=== PATIENT | male | born 1945 | race Caucasian/White ===

== ENCOUNTER 2017-05-11 13:05 | Inpatient (IN) | payer OTHER ==
[~2017-05-11] VITALS: Ht 180.3 cm; Wt 94.1 kg
[2017-05-11 14:07] LABS: BASOPHIL (%) 0.5 % (0-1); EOSINOPHIL (%) 4.8 % (0-5); EOSINOPHIL COUNT 0.2 K/uL (0-0.3); HEMATOCRIT 36.3 % (38.0-50.0); HEMOGLOBIN 12.1 G/DL (12.5-16.6); IMMATURE GRANULOCYTE (%) 0.2 % (0.0-0.7); LYMPHOCYTE (%) 18.5 % (15-42); LYMPHOCYTE COUNT 0.8 K/uL (1.0-2.8); MCH 27.3 PG (29.0-34.0); MCHC 33.3 G/DL (30.0-36.0); MCV 81.8 FL (86-99); MONOCYTE (%) 12.6 % (3-12); MONOCYTE COUNT 0.6 K/uL (0-0.8); NEUTROPHIL (%) 63.4 % (45-76); NEUTROPHIL COUNT 2.8 K/uL (1.8-6.4); PLATELET COUNT 189 K/uL (156-360); RBC DIS.WIDTH-CV 13.9 % (11.8-14.6); RBC DIS.WIDTH-SD 41.2 % (39-53); RED BLOOD COUNT 4.44 M/uL (4.00-5.50); WHITE BLOOD COUNT 4.4 K/uL (4.1-10.2)
[2017-05-11 14:20] LABS: INTER. NORMALIZED RATIO 1.6
[2017-05-11 14:21] LABS: CHLORIDE 106 mEq/L (99-109); SODIUM 138 mEq/L (136-147)
[2017-05-11 14:23] LABS: GLUCOSE 276 mg/dL (70-99); PTT 31.6 SEC (25-37)
[2017-05-11 14:27] LABS: CREATININE 1.6 mg/dL (0.6-1.3); GFR ESTIMATE (CALCULATED) 46 mL/min/ (58.99-99999)
[2017-05-11 14:28] LABS: UREA NITROGEN (BUN) 28 mg/dL (9-23)
[2017-05-11 14:39] LABS: ERTH.SED.RATE 13 MM/HR (0-20)
[2017-05-11 15:03] LABS: C-REACTIVE PROTEIN 1.1 MG/L (0-10)
[2017-05-11] MEDS ORDERED: XARELTO20 MG PO (16:54)
[2017-05-11] MEDS ORDERED: ADVIL200 MG PO (16:55)
[2017-05-11] MEDS ORDERED: METFORMIN HCL1000 MG PO (16:55)
[2017-05-11] MEDS ORDERED: AMARYL1 MG PO (16:55)
[2017-05-11] MEDS ORDERED: COZAAR50 MG PO (16:55)
[2017-05-11] MEDS ORDERED: MAGNESIUM400 M1 PO (16:55)
[2017-05-11] MEDS ORDERED: ZOLOFT100 MG PO (16:55)
[2017-05-11] MEDS ORDERED: TRESIBA FL100 UNIT/1 SC (16:56)
[2017-05-11 19:59] LABS: HEMATOCRIT 35.1 % (38.0-50.0); HEMOGLOBIN 11.8 G/DL (12.5-16.6); MCH 27.6 PG (29.0-34.0); MCHC 33.6 G/DL (30.0-36.0); PLATELET COUNT 182 K/uL (156-360); RBC DIS.WIDTH-CV 14.1 % (11.8-14.6); RBC DIS.WIDTH-SD 41.4 % (39-53); RED BLOOD COUNT 4.28 M/uL (4.00-5.50); WHITE BLOOD COUNT 4.1 K/uL (4.1-10.2)
[2017-05-11 20:39] LABS: HDL CHOLESTEROL 31 MG/DL (Desirable>=40); LDL CHOLESTEROL 70 mg/dL (Desirable<100); NON-HDL CHOLESTEROL 81 mg/dL (Desirable<160); TOTAL CHOLESTEROL 112 mg/dL (Desirable<200); TRIGLYCERIDES 55 MG/DL (Normal: <150)
[2017-05-11 22:00] VITALS: BP 116/68
[2017-05-11 23:41] VITALS: BP 134/75
[2017-05-12 08:05] VITALS: BP 144/80
[2017-05-12] MEDS ORDERED: PRAVASTATIN SOD80 MG PO (10:53)
[2017-05-12] MEDS ORDERED: ASPIRIN81 M2 PO (10:54)
[2017-05-12 11:45] LABS: HEMOGLOBIN A1c (GLYCOHEMOGLOB) 12.2 % (Below 5.7)
== END 2017-05-12 10:55 | disposition left against medical advice (07) | DRG 66 ==
LOC: EME 13:05 → 5SOUTH 16:53 → EDOF 16:53 → CANRESERV 16:56 → ENRESERV 16:56 → EDOF 18:53 → ENRESERV 19:24 → 5SOUTH 20:33
PROVIDERS: Family Medicine; Internal Medicine
DX: I63.9 Cerebral infarction, unspecified (principal); I12.9 Hypertensive chronic kidney disease with stage 1 through stage 4 chronic kidney disease, or unspecified chronic kidney disease; N18.3 Chronic kidney disease, stage 3 (moderate); E11.22 Type 2 diabetes mellitus with diabetic chronic kidney disease; E11.65 Type 2 diabetes mellitus with hyperglycemia; E78.5 Hyperlipidemia, unspecified; H54.7 Unspecified visual loss; E83.42 Hypomagnesemia; F32.9 Major depressive disorder, single episode, unspecified; Z79.01 Long term (current) use of anticoagulants; Z79.4 Long term (current) use of insulin; Z85.72 Personal history of non-Hodgkin lymphomas; Z86.711 Personal history of pulmonary embolism; Z86.718 Personal history of other venous thrombosis and embolism; Z86.72 Personal history of thrombophlebitis; Z90.01 Acquired absence of eye; Z97.0 Presence of artificial eye; Z92.21 Personal history of antineoplastic chemotherapy
CPT/HCPCS: 70450; 70543; 80048; 80061; 82948; 83036; 85025; 85027; 85610; 85651; 85730; 86140; 93005; 99281; 99285